=== PATIENT | male | born 1995 | race Caucasian/White ===

== ENCOUNTER 2016-10-09 13:50 | Emergency (ER) | payer OTHER ==
[2016-10-09] MEDS ORDERED: predniSONE 20 MG TAB As Ordered ONE (15:06)
[2016-10-09] MEDS ORDERED: IPRATROPIUM 0.5MG/ALBUTEROL 2.5MG INH SOL UD 3ML (DUONEB)(J7620) As Ordered ONE (15:11)
--- NOTE | 2016-10-09 15:20 | REP ---
Chest x-ray: Two views. History: Cough. . Comparison study: December 15 2015. . Findings: The lungs are well inflated and free of infiltrate. The infiltrate visible on the December 15, 2015 prior chest x-ray has resolved. The pleural angles are sharp. The heart size is normal. Pulmonary vasculature is not increased. No significant bony abnormality is seen. Impression: Negative chest x-ray. Signed by Mark Lyman MD 10/09/2016 03:12 P
[2016-10-09] MEDS ORDERED: AZITHROMYCIN 250 MG TAB As Ordered ONE (16:23)
--- NOTE | 2016-10-09 16:31 | EDDOCDS ---
Physician Documentation [facility] Name: Oscar Flood Age: 21 yrs Sex: Male : 1995 Arrival Date: 10/09/2016 Time: 13:50 Bed Private MD: Other - Complete Info On Cds Disposition: 10/09/16 16:20 Discharged to Home/Self Care. Impression: Acute bronchitis. - Condition is Stable. - Discharge Instructions: Acute Bronchitis, [id number]. - Prescriptions for Prednisone 20 mg Oral Tablet - take 3 tablet by ORAL route once daily for 5 days; 15 tablet. Zithromax 250 mg Oral Tablet - take 1 tablet by ORAL route once daily start tomorrow; 4 tablet. Mucinex 600 mg - take 1 tablet by ORAL route 2 times per day; 30 tablet. Albuterol Sulfate 90 mcg/actuation Inhalation HFA Aerosol Inhaler - inhale 2 puff by INHALATION route every 4 hours As needed; 1 Inhaler. - Medication Reconciliation, Local Pharmacy Hours form. - Follow up: [facility] [place]; When: 1 - 2 days; Reason: Recheck today's complaints, Continuance of care. Follow up: Emergency Department; Reason: Worsening of conditions. - Problem is new. - Symptoms have improved. Historical: - Allergies: no known allergies; - Home Meds: 1. albuterol sulfate 90 mcg/actuation Inhl HFAA 2 puffs every 4-6 hours (Last dose: 10/08/2016 15:00) - PMHx: Asthma; - PSHx: none; - Social history: Smoking status: Patient states was never smoker of tobacco. No barriers to communication noted, Speaks appropriately for age. - Family history: Not pertinent. - : The pt / caregiver states he / she is not on anticoagulants. Home medication list is obtained from the patient. - Exposure Risk Screening:: Recent exposure to. Vital Signs: 10/09 13:53 BP 154 / 65; Pulse 81; Resp 18; Temp 98.7; Pulse Ox 100% on R/A; Weight 92.99 kg / jrd 205.01 lbs (R); Height 6 ft. 2 in. (187.96 cm); Pain 7/10; 16:26 BP 132 / 62; Pulse 78; Resp 16; Temp 98.7(O); Pulse Ox 100% on R/A; Pain 0/10; js13 13:53 Body Mass Index 26.32 (92.99 kg, 187.96 cm) jrd MDM: 13:58 ECG WITH READING ER PHYS+CARDIAG ordered. EDMS 14:57 predniSONE 60 mg PO once; administer with food or milk ordered. ef1 14:57 Albuterol-Ipratropium 1 neb Nebulizer every 20 minutes x3 ordered. ef1 14:57 Call Respiratory ordered. ef1 14:58 Chest, 2 View (pa\E\lat) Ordered. EDMS 14:59 Call Respiratory complete. ar3 15:28 [facility] Payment Agreement was scanned into [employer] and attached to record. gjb 15:29 Financial registration complete. gjb 16:20 azithromycin 500 mg PO once ordered. ef1 Administered Medications: 15:00 Drug: Albuterol-Ipratropium 1 neb [ipratropium-albuterol 0.5 mg-3 mg(2.5 mg base)/3 mL js11 nebulization soln (1 neb)] Route: Nebulizer; 15:11 Drug: predniSONE 60 mg [prednisone 20 mg tablet (3 tabs)] Route: PO; ml6 15:20 Drug: Albuterol-Ipratropium 1 neb [ipratropium-albuterol 0.5 mg-3 mg(2.5 mg base)/3 mL js11 nebulization soln (1 neb)] Route: Nebulizer; 15:40 Drug: Albuterol-Ipratropium 1 neb [ipratropium-albuterol 0.5 mg-3 mg(2.5 mg base)/3 mL js11 nebulization soln (1 neb)] Route: Nebulizer; 16:23 Drug: azithromycin 500 mg [azithromycin 250 mg tablet (2 tabs)] Route: PO; js13 16:26 Follow up: Response: Pt left department before re-evaluation is appropriate js13 Signatures: Dispatcher [employer] EDMS Marilyn Alba PA-C PA-C ef1 Devan Staples, RN RN ml6 Kayy Hartman, WEB PRESS OPERATOR HELPER OFFSET WEB PRESS OPERATOR HELPER OFFSET ar3 Celia Camarillo RN RN js13 Trang Corleyb Raciel Teran js11 The chart was reviewed and I authenticate all verbal orders and agree with the evaluation and treatment provided.Attachments: 15:28 [facility] Payment Agreement gjb MTDD
--- NOTE | 2016-10-09 16:31 | EDDOCDS ---
Nurse's Notes [facility] Name: Oscar Flood Age: 21 yrs Sex: Male : 1995 Arrival Date: 10/09/2016 Time: 13:50 Bed PR Private MD: Other - Complete Info On Cds Diagnosis: Acute bronchitis Presentation: 10/09 13:54 Presenting complaint: Patient states: states left lateral chest pain, states pain with ml6 inspiration, movement, and palpation. Aspirin was not taken prior to arrival. Adult Sepsis Screening: The patient does not have new or worsening altered mentation. Patient's respiratory rate is less than 22. Systolic blood pressure is greater than 100. Patient has a qSOFA score of 0- Negative Sepsis Screen. Suicide/Homicide risk assessment- the patient denies having any suicidal and/or homicidal ideations and does not present with any other emotional, behavioral or mental health complaints. 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 Transition of care: patient was not received from another setting of care. 13:54 Acuity: CONOR Level 4 ml6 13:54 Acuity: CONOR Level 3 ml6 13:54 Method Of Arrival: Walkin/Carried/Asstd ml6 Triage Assessment: 13:56 General: Appears in no apparent distress, Behavior is appropriate for age, cooperative. ml6 Pain: Location: left breast Pain currently is 4 out of 10 on a pain scale. Pain does not radiate. Quality of pain is described as aching, Pain began 1 hour ago Is continuous Alleviated by nothing. Aggravated by increased activity. HIV screening NA for this visit Offered previously. Cardiovascular: Capillary refill < 3 seconds is brisk in bilateral fingers toes Heart tones S1 S2 present Edema is absent. Pulses are all present. Chest pain is described as vague, quality is stabbing, is located in left anterior chest wall radiates Does not radiate. episodes are intermittent began 1 hour prior to arrival is aggravated by activity, breathing. Respiratory: No deficits noted. Airway is patent Respiratory effort is even, unlabored, Respiratory pattern is regular, symmetrical, Breath sounds are clear bilaterally. Historical: - Allergies: no known allergies; - Home Meds: 1. albuterol sulfate 90 mcg/actuation Inhl HFAA 2 puffs every 4-6 hours (Last dose: 10/08/2016 15:00) - PMHx: Asthma; - PSHx: none; - Social history: Smoking status: Patient states was never smoker of tobacco. No barriers to communication noted, Speaks appropriately for age. - Family history: Not pertinent. - : The pt / caregiver states he / she is not on anticoagulants. Home medication list is obtained from the patient. - Exposure Risk Screening:: Recent exposure to. Screenin:26 Screening information is obtained from the patient. Fall risk: No risks identified. js13 Assistance ADL's: requires no assistance with activities of daily living. Abuse/DV Screen: The patient / caregiver reports he/she is: not in a situation that causes fear, pain or injury. Nutritional screening: No deficits noted. Advance Directives: There is no active DNR order. home support is adequate. Assessment: 16:26 General: Appears in no apparent distress, comfortable, Behavior is appropriate for age, js13 cooperative. Pain: Denies pain. Neurological: Level of Consciousness is awake, alert. Cardiovascular: Chest pain is denied. Respiratory: Airway is patent Respiratory effort is even, unlabored, Respiratory pattern is regular, symmetrical, Breath sounds with rhonchi. Derm: Skin is pink, warm & dry. Vital Signs: 13:53 BP 154 / 65; Pulse 81; Resp 18; Temp 98.7; Pulse Ox 100% on R/A; Weight 92.99 kg (R); jrd Height 6 ft. 2 in. (187.96 cm); Pain 7/10; 16:26 BP 132 / 62; Pulse 78; Resp 16; Temp 98.7(O); Pulse Ox 100% on R/A; Pain 0/10; js13 13:53 Body Mass Index 26.32 (92.99 kg, 187.96 cm) [facility] Vitals: 13:53 Log In Time: October 09, 2016 at 13:51. jrd 13:53 RN notified that patient meets Red Flag criteria. d ED Course: 13:51 Patient visited by Mulugeta Shrap PCA. jrd 13:51 Patient moved to Waiting jrd 13:53 Other - Complete Info On Cds is Private Physician. jrd 13:54 Patient visited by Mulugeta Sharp PCA. jrd 13:55 Patient moved to Pre RCE jrd 13:56 Triage Initiated ml6 13:58 Patient moved to Triage 3 ml6 14:28 EKG done. (by ED staff). Reviewed by Viet Gomez MD. bnb 14:31 Patient visited by Nereida Unger PCA. bnb 14:44 Marilyn Alba PA-C is PHCP. ef1 14:44 Viet Gomez MD is Attending Physician. ef1 14:44 Patient visited by Marilyn Alba PA-C. ef1 14:57 Patient moved to PR2 bnb 15:28 [facility] Payment Agreement was scanned into [employer] and attached to record. gjb 15:49 Patient visited by Marilyn Alba PA-C. ef1 15:57 Chest, 2 View (pa\E\lat) Returned. EDMS 16:16 Patient visited by Marilyn Alba PA-C. ef1 16:20 Geena Junior [facility] is Referral Physician. ef1 16:26 The patient / caregiver is instructed regarding the plan of care and ED course. Cardiac js13 monitoring not applicable on this patient. 16:26 No IV's were initiated during this patient's visit. No procedures done that require js13 assistance. Administered Medications: 15:00 Drug: Albuterol-Ipratropium 1 neb [ipratropium-albuterol 0.5 mg-3 mg(2.5 mg base)/3 mL js11 nebulization soln (1 neb)] Route: Nebulizer; 15:11 Drug: predniSONE 60 mg [prednisone 20 mg tablet (3 tabs)] Route: PO; ml6 15:20 Drug: Albuterol-Ipratropium 1 neb [ipratropium-albuterol 0.5 mg-3 mg(2.5 mg base)/3 mL js11 nebulization soln (1 neb)] Route: Nebulizer; 15:40 Drug: Albuterol-Ipratropium 1 neb [ipratropium-albuterol 0.5 mg-3 mg(2.5 mg base)/3 mL js11 nebulization soln (1 neb)] Route: Nebulizer; 16:23 Drug: azithromycin 500 mg [azithromycin 250 mg tablet (2 tabs)] Route: PO; js13 16:26 Follow up: Response: Pt left department before re-evaluation is appropriate js13 RT: 15:00 Initial Med Neb Given as ordered Patient was instructed and evaluated on procedure js11 Patient tolerated procedure well without adverse effect. Oxygen is room air. Respiratory: Breath sounds are diminished bilaterally. 15:20 Subsequent Med Neb Given as ordered Patient tolerated procedure well without adverse js11 effect. Respiratory: breath sounds increased. 15:40 Subsequent Med Neb Given as ordered Patient tolerated procedure well without adverse js11 effect. Respiratory: Breath sounds are clear bilaterally. Order Results: Radiology Order: Chest, 2 View (pa\E\lat) Test: Chest, 2 View (pa\E\lat) REASON FOR EXAMINATION: Cough; Chest x-ray: Two views.; ; History: Cough. .; ; Comparison study: December 15 2015. .; ; Findings: The lungs are well inflated and free of infiltrate. The infiltrate; visible on the December 15, 2015 prior chest x-ray has resolved. The pleural angles; are sharp. The heart size is normal. Pulmonary vasculature is not increased.; No significant bony abnormality is seen.; ; Impression:; ; Negative chest x-ray.; ; ; Signed by; Mark Lyman MD 10/09/2016 03:12 P; Outcome: 16:20 Discharge ordered by Provider. ef1 16:26 Discharge Assessment: Patient awake, alert and oriented x 3. No cognitive and/or js13 functional deficits noted. Patient verbalized understanding of disposition instructions. patient administered narcotics - no. The following High Risk Discharge criteria are identified: None. Discharged to home ambulatory. Condition: stable. Discharge instructions given to patient, Instructed on discharge instructions, follow up and referral plans. medication usage, Demonstrated understanding of instructions, medications, Pt was receptive of discharge instructions/ teaching. Prescriptions given X 4. No special radiology studies were completed. Property :Personal belongings accompany Pt. 16:29 Patient left the ED. js13 Signatures: Dispatcher [employer] EDMS Marilyn Alba, PAMauricioC PA-C ef1 Devan Staples, NAVDEEP RN [id number] Raciel Teran js11 Celia Camarillo RN RN js13 Mulugeta Sharp, ACID PATROLLER ACID PATROLLER Trang Shine Brittney, ACID PATROLLER ACID PATROLLER bnb MTDD
--- NOTE | 2016-10-09 17:44 | ECGEPIP ---
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 Order Number: [id number] Reading MD: Terrence Wilks Measurements Intervals [place] Rate: 62 P: 40 HI: 137 QRS: 4 QRSD: 72 T: 39 QT: 385 QTc: 393 Interpretive Statements SINUS RHYTHM EARLY REPOLARIZATION NO PRIORS Electronically Signed On 10-09-2016 17:44:05 EST by Terrence Wilks
--- NOTE | 2016-10-11 17:30 | EDDOCDS ---
[facility] Name: Oscar Flood Age: 21 yrs Sex: Male : 1995 Arrival Date: 10/09/2016 Time: 13:50 Bed Private MD: Other - Complete Info On Cds Disposition: 10/09/16 16:20 Discharged to Home/Self Care. Impression: Acute bronchitis. - Condition is Stable. - Discharge Instructions: Acute Bronchitis, [id number]. - Prescriptions for Prednisone 20 mg Oral Tablet - take 3 tablet by ORAL route once daily for 5 days; 15 tablet. Zithromax 250 mg Oral Tablet - take 1 tablet by ORAL route once daily start tomorrow; 4 tablet. Mucinex 600 mg - take 1 tablet by ORAL route 2 times per day; 30 tablet. Albuterol Sulfate 90 mcg/actuation Inhalation HFA Aerosol Inhaler - inhale 2 puff by INHALATION route every 4 hours As needed; 1 Inhaler. - Medication Reconciliation, Local Pharmacy Hours form. - Follow up: [facility] [place]; When: 1 - 2 days; Reason: Recheck today's complaints, Continuance of care. Follow up: Emergency Department; Reason: Worsening of conditions. - Problem is new. - Symptoms have improved. Historical: - Allergies: no known allergies; - Home Meds: 1. albuterol sulfate 90 mcg/actuation Inhl HFAA 2 puffs every 4-6 hours (Last dose: 10/08/2016 15:00) - PMHx: Asthma; - PSHx: none; - Social history: Smoking status: Patient states was never smoker of tobacco. No barriers to communication noted, Speaks appropriately for age. - Family history: Not pertinent. - : The pt / caregiver states he / she is not on anticoagulants. Home medication list is obtained from the patient. - Exposure Risk Screening:: Recent exposure to. Vital Signs: 10/09 13:53 BP 154 / 65; Pulse 81; Resp 18; Temp 98.7; Pulse Ox 100% on R/A; Weight 92.99 kg / jrd 205.01 lbs (R); Height 6 ft. 2 in. (187.96 cm); Pain 7/10; 16:26 BP 132 / 62; Pulse 78; Resp 16; Temp 98.7(O); Pulse Ox 100% on R/A; Pain 0/10; js13 13:53 Body Mass Index 26.32 (92.99 kg, 187.96 cm) jrd MDM: 13:58 ECG WITH READING ER PHYS+CARDIAG ordered. EDMS 14:57 predniSONE 60 mg PO once; administer with food or milk ordered. ef1 14:57 Albuterol-Ipratropium 1 neb Nebulizer every 20 minutes x3 ordered. ef1 14:57 Call Respiratory ordered. ef1 14:58 Chest, 2 View (pa\E\lat) Ordered. EDMS 14:59 Call Respiratory complete. ar3 15:28 [facility] Payment Agreement was scanned into [employer] and attached to record. gjb 15:29 Financial registration complete. gjb 16:20 azithromycin 500 mg PO once ordered. ef1 10/10 12:51 T-Sheet-- Draft Copy was scanned into [employer] and attached to record. gb 12:51 ECG/EKG was scanned into [employer] and attached to record. gb Administered Medications: 10/09 15:00 Drug: Albuterol-Ipratropium 1 neb [ipratropium-albuterol 0.5 mg-3 mg(2.5 mg base)/3 mL js11 nebulization soln (1 neb)] Route: Nebulizer; 15:11 Drug: predniSONE 60 mg [prednisone 20 mg tablet (3 tabs)] Route: PO; ml6 15:20 Drug: Albuterol-Ipratropium 1 neb [ipratropium-albuterol 0.5 mg-3 mg(2.5 mg base)/3 mL js11 nebulization soln (1 neb)] Route: Nebulizer; 15:40 Drug: Albuterol-Ipratropium 1 neb [ipratropium-albuterol 0.5 mg-3 mg(2.5 mg base)/3 mL js11 nebulization soln (1 neb)] Route: Nebulizer; 16:23 Drug: azithromycin 500 mg [azithromycin 250 mg tablet (2 tabs)] Route: PO; js13 16:26 Follow up: Response: Pt left department before re-evaluation is appropriate js13 Signatures: Dispatcher [employer] EDMS Abril Goddard, Reg Reg gb Marilyn Alba, PA-C PA-C ef1 Devan Staples, RN RN ml6 Kayy Hartman, COMBAT SYSTEMS ENGINEER COMBAT SYSTEMS ENGINEER ar3 Celia Camarillo,RN RN js13 Trang Corleyb Raciel Teran js11 The chart was reviewed and I authenticate all verbal orders and agree with the evaluation and treatment provided.Attachments: 15:28 [facility] Payment Agreement gjb 10/10 12:51 T-Sheet-- Draft Copy gb 12:51 ECG/EKG gb Chart Complete MTDD
--- NOTE | 2016-10-11 17:31 | EDDOCDS ---
Physician Documentation [facility] Name: Oscar Flood Age: 21 yrs Sex: Male : 1995 Arrival Date: 10/09/2016 Time: 13:50 Bed Private MD: Other - Complete Info On Cds Disposition: 10/09/16 16:20 Discharged to Home/Self Care. Impression: Acute bronchitis. - Condition is Stable. - Discharge Instructions: Acute Bronchitis, [id number]. - Prescriptions for Prednisone 20 mg Oral Tablet - take 3 tablet by ORAL route once daily for 5 days; 15 tablet. Zithromax 250 mg Oral Tablet - take 1 tablet by ORAL route once daily start tomorrow; 4 tablet. Mucinex 600 mg - take 1 tablet by ORAL route 2 times per day; 30 tablet. Albuterol Sulfate 90 mcg/actuation Inhalation HFA Aerosol Inhaler - inhale 2 puff by INHALATION route every 4 hours As needed; 1 Inhaler. - Medication Reconciliation, Local Pharmacy Hours form. - Follow up: [facility] [place]; When: 1 - 2 days; Reason: Recheck today's complaints, Continuance of care. Follow up: Emergency Department; Reason: Worsening of conditions. - Problem is new. - Symptoms have improved. Historical: - Allergies: no known allergies; - Home Meds: 1. albuterol sulfate 90 mcg/actuation Inhl HFAA 2 puffs every 4-6 hours (Last dose: 10/08/2016 15:00) - PMHx: Asthma; - PSHx: none; - Social history: Smoking status: Patient states was never smoker of tobacco. No barriers to communication noted, Speaks appropriately for age. - Family history: Not pertinent. - : The pt / caregiver states he / she is not on anticoagulants. Home medication list is obtained from the patient. - Exposure Risk Screening:: Recent exposure to. Vital Signs: 10/09 13:53 BP 154 / 65; Pulse 81; Resp 18; Temp 98.7; Pulse Ox 100% on R/A; Weight 92.99 kg / jrd 205.01 lbs (R); Height 6 ft. 2 in. (187.96 cm); Pain 7/10; 16:26 BP 132 / 62; Pulse 78; Resp 16; Temp 98.7(O); Pulse Ox 100% on R/A; Pain 0/10; js13 13:53 Body Mass Index 26.32 (92.99 kg, 187.96 cm) jrd MDM: 13:58 ECG WITH READING ER PHYS+CARDIAG ordered. EDMS 14:57 predniSONE 60 mg PO once; administer with food or milk ordered. ef1 14:57 Albuterol-Ipratropium 1 neb Nebulizer every 20 minutes x3 ordered. ef1 14:57 Call Respiratory ordered. ef1 14:58 Chest, 2 View (pa\E\lat) Ordered. EDMS 14:59 Call Respiratory complete. ar3 15:28 [facility] Payment Agreement was scanned into [employer] and attached to record. gjb 15:29 Financial registration complete. gjb 16:20 azithromycin 500 mg PO once ordered. ef1 10/10 12:51 T-Sheet-- Draft Copy was scanned into [employer] and attached to record. gb 12:51 ECG/EKG was scanned into [employer] and attached to record. gb Administered Medications: 10/09 15:00 Drug: Albuterol-Ipratropium 1 neb [ipratropium-albuterol 0.5 mg-3 mg(2.5 mg base)/3 mL js11 nebulization soln (1 neb)] Route: Nebulizer; 15:11 Drug: predniSONE 60 mg [prednisone 20 mg tablet (3 tabs)] Route: PO; ml6 15:20 Drug: Albuterol-Ipratropium 1 neb [ipratropium-albuterol 0.5 mg-3 mg(2.5 mg base)/3 mL js11 nebulization soln (1 neb)] Route: Nebulizer; 15:40 Drug: Albuterol-Ipratropium 1 neb [ipratropium-albuterol 0.5 mg-3 mg(2.5 mg base)/3 mL js11 nebulization soln (1 neb)] Route: Nebulizer; 16:23 Drug: azithromycin 500 mg [azithromycin 250 mg tablet (2 tabs)] Route: PO; js13 16:26 Follow up: Response: Pt left department before re-evaluation is appropriate js13 Signatures: Dispatcher [employer] EDMS Abril Goddard, Reg Reg gb Marilyn Alba, PA-C PA-C ef1 Devna Staples, RN RN ml6 Kayy Hartman, BUSINESS SERVICES DIRECTOR BUSINESS SERVICES DIRECTOR ar3 Celia Camarillo,RN RN js13 Trang Corleyb Raciel Teran js11 The chart was reviewed and I authenticate all verbal orders and agree with the evaluation and treatment provided.Attachments: 15:28 [facility] Payment Agreement gjb 10/10 12:51 T-Sheet-- Draft Copy gb 12:51 ECG/EKG gb Chart Complete MTDD
--- NOTE | 2016-10-11 17:31 | EDDOCDS ---
Nurse's Notes [facility] Name: Hua Flood Age: 21 yrs Sex: Male : 1995 Arrival Date: 10/09/2016 Time: 13:50 Bed PR Private MD: Other - Complete Info On Cds Diagnosis: Acute bronchitis Presentation: 10/09 13:54 Presenting complaint: Patient states: states left lateral chest pain, states pain with ml6 inspiration, movement, and palpation. Aspirin was not taken prior to arrival. Adult Sepsis Screening: The patient does not have new or worsening altered mentation. Patient's respiratory rate is less than 22. Systolic blood pressure is greater than 100. Patient has a qSOFA score of 0- Negative Sepsis Screen. Suicide/Homicide risk assessment- the patient denies having any suicidal and/or homicidal ideations and does not present with any other emotional, behavioral or mental health complaints. 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 Transition of care: patient was not received from another setting of care. 13:54 Acuity: CONOR Level 4 ml6 13:54 Acuity: CONOR Level 3 ml6 13:54 Method Of Arrival: Walkin/Carried/Asstd ml6 Triage Assessment: 13:56 General: Appears in no apparent distress, Behavior is appropriate for age, cooperative. ml6 Pain: Location: left breast Pain currently is 4 out of 10 on a pain scale. Pain does not radiate. Quality of pain is described as aching, Pain began 1 hour ago Is continuous Alleviated by nothing. Aggravated by increased activity. HIV screening NA for this visit Offered previously. Cardiovascular: Capillary refill < 3 seconds is brisk in bilateral fingers toes Heart tones S1 S2 present Edema is absent. Pulses are all present. Chest pain is described as vague, quality is stabbing, is located in left anterior chest wall radiates Does not radiate. episodes are intermittent began 1 hour prior to arrival is aggravated by activity, breathing. Respiratory: No deficits noted. Airway is patent Respiratory effort is even, unlabored, Respiratory pattern is regular, symmetrical, Breath sounds are clear bilaterally. Historical: - Allergies: no known allergies; - Home Meds: 1. albuterol sulfate 90 mcg/actuation Inhl HFAA 2 puffs every 4-6 hours (Last dose: 10/08/2016 15:00) - PMHx: Asthma; - PSHx: none; - Social history: Smoking status: Patient states was never smoker of tobacco. No barriers to communication noted, Speaks appropriately for age. - Family history: Not pertinent. - : The pt / caregiver states he / she is not on anticoagulants. Home medication list is obtained from the patient. - Exposure Risk Screening:: Recent exposure to. Screenin:26 Screening information is obtained from the patient. Fall risk: No risks identified. js13 Assistance ADL's: requires no assistance with activities of daily living. Abuse/DV Screen: The patient / caregiver reports he/she is: not in a situation that causes fear, pain or injury. Nutritional screening: No deficits noted. Advance Directives: There is no active DNR order. home support is adequate. Assessment: 16:26 General: Appears in no apparent distress, comfortable, Behavior is appropriate for age, js13 cooperative. Pain: Denies pain. Neurological: Level of Consciousness is awake, alert. Cardiovascular: Chest pain is denied. Respiratory: Airway is patent Respiratory effort is even, unlabored, Respiratory pattern is regular, symmetrical, Breath sounds with rhonchi. Derm: Skin is pink, warm & dry. Vital Signs: 13:53 BP 154 / 65; Pulse 81; Resp 18; Temp 98.7; Pulse Ox 100% on R/A; Weight 92.99 kg (R); jrd Height 6 ft. 2 in. (187.96 cm); Pain 7/10; 16:26 BP 132 / 62; Pulse 78; Resp 16; Temp 98.7(O); Pulse Ox 100% on R/A; Pain 0/10; js13 13:53 Body Mass Index 26.32 (92.99 kg, 187.96 cm) [facility] Vitals: 13:53 Log In Time: October 09, 2016 at 13:51. jrd 13:53 RN notified that patient meets Red Flag criteria. d ED Course: 13:51 Patient visited by Mulugeta Sharp PCA. jrd 13:51 Patient moved to Waiting jrd 13:53 Other - Complete Info On Cds is Private Physician. jrd 13:54 Patient visited by Mulugeta Sharp PCA. jrd 13:55 Patient moved to Pre RCE jrd 13:56 Triage Initiated ml6 13:58 Patient moved to Triage 3 ml6 14:28 EKG done. (by ED staff). Reviewed by Viet Gomez MD. bnb 14:31 Patient visited by Nereida Unger PCA. bnb 14:44 Marilyn Alba PA-C is PHCP. ef1 14:44 Viet Gomez MD is Attending Physician. ef1 14:44 Patient visited by Marilyn Alba PA-C. ef1 14:57 Patient moved to PR2 bnb 15:28 [facility] Payment Agreement was scanned into [employer] and attached to record. gjb 15:49 Patient visited by Marilyn Alba PA-C. ef1 15:57 Chest, 2 View (pa\E\lat) Returned. EDMS 16:16 Patient visited by Marilyn Alba PA-C. ef1 16:20 Geena Junior [facility] is Referral Physician. ef1 16:26 The patient / caregiver is instructed regarding the plan of care and ED course. Cardiac js13 monitoring not applicable on this patient. 16:26 No IV's were initiated during this patient's visit. No procedures done that require js13 assistance. 17:50 EKG-ADULT Returned. EDMS 10/10 12:51 T-Sheet-- Draft Copy was scanned into [employer] and attached to record. gb 12:51 ECG/EKG was scanned into [employer] and attached to record. gb Administered Medications: 10/09 15:00 Drug: Albuterol-Ipratropium 1 neb [ipratropium-albuterol 0.5 mg-3 mg(2.5 mg base)/3 mL js11 nebulization soln (1 neb)] Route: Nebulizer; 15:11 Drug: predniSONE 60 mg [prednisone 20 mg tablet (3 tabs)] Route: PO; ml6 15:20 Drug: Albuterol-Ipratropium 1 neb [ipratropium-albuterol 0.5 mg-3 mg(2.5 mg base)/3 mL js11 nebulization soln (1 neb)] Route: Nebulizer; 15:40 Drug: Albuterol-Ipratropium 1 neb [ipratropium-albuterol 0.5 mg-3 mg(2.5 mg base)/3 mL js11 nebulization soln (1 neb)] Route: Nebulizer; 16:23 Drug: azithromycin 500 mg [azithromycin 250 mg tablet (2 tabs)] Route: PO; js13 16:26 Follow up: Response: Pt left department before re-evaluation is appropriate js13 RT: 15:00 Initial Med Neb Given as ordered Patient was instructed and evaluated on procedure js11 Patient tolerated procedure well without adverse effect. Oxygen is room air. Respiratory: Breath sounds are diminished bilaterally. 15:20 Subsequent Med Neb Given as ordered Patient tolerated procedure well without adverse js11 effect. Respiratory: breath sounds increased. 15:40 Subsequent Med Neb Given as ordered Patient tolerated procedure well without adverse js11 effect. Respiratory: Breath sounds are clear bilaterally. 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 .; ; Comparison study: December 15 2015. .; ; Findings: The lungs are well inflated and free of infiltrate. The infiltrate; visible on the December 15, 2015 prior chest x-ray has resolved. The pleural angles; are sharp. The heart size is normal. Pulmonary vasculature is not increased.; No significant bony abnormality is seen.; ; Impression:; ; Negative chest x-ray.; ; ; Signed by; Mark Lyman MD 10/09/2016 03:12 P; Outcome: 16:20 Discharge ordered by Provider. ef1 16:26 Discharge Assessment: Patient awake, alert and oriented x 3. No cognitive and/or js13 functional deficits noted. Patient verbalized understanding of disposition instructions. patient administered narcotics - no. The following High Risk Discharge criteria are identified: None. Discharged to home ambulatory. Condition: stable. Discharge instructions given to patient, Instructed on discharge instructions, follow up and referral plans. medication usage, Demonstrated understanding of instructions, medications, Pt was receptive of discharge instructions/ teaching. Prescriptions given X 4. No special radiology studies were completed. Property :Personal belongings accompany Pt. 16:29 Patient left the ED. js13 Signatures: Dispatcher [employer] EDMS Abril Goddard, Reg Reg gb Marilyn Alba, PA-C PA-C ef1 Devan Staples, RN RN ml6 Raciel Teran js11 Celia Camarillo,RN RN js13 Mulugeta Sharp, QUALITY ASSURANCE SUPERVISOR QUALITY ASSURANCE SUPERVISOR Trang Shine Brittney, QUALITY ASSURANCE SUPERVISOR QUALITY ASSURANCE SUPERVISOR bnb Chart Complete MTDStefano
== END 2016-10-09 16:29 | disposition home or self-care (01) ==
LOC: M ED 13:50
DX: J20.9 Acute bronchitis, unspecified (principal); R06.02 Shortness of breath; J45.909 Unspecified asthma, uncomplicated; Z79.51 Long term (current) use of inhaled steroids